=== PATIENT | male | born 1995 | race Caucasian/White ===

== ENCOUNTER → 2020-05-23 | Outpatient (CLI) | payer OTHER ==
--- NOTE | 2020-05-26 01:52 | ECWPNPC ---
PATIENT NAME: SALLY SCOTT : 1995 GENDER: MALE VISIT DATE: 05/23/2020 DISCHARGE DATE: 05/23/20925 VISIT LOCKED DATE TIME: PHYSICIAN: NEGRO REAL RESOURCE: NEGRO REAL REASON FOR APPOINTMENT 1. BACK PAIN HISTORY OF PRESENT ILLNESS DEPRESSION SCREENING: PHQ-2 (2015 EDITION) LITTLE INTEREST OR PLEASURE IN DOING THINGS?NOT AT ALL FEELING DOWN, DEPRESSED, OR HOPELESS?NOT AT ALL TOTAL SCORE0 GENERAL: 24-YEAR-OLD GENTLEMAN BEING REFERRED BY JUAN LUIS [facility]YS NP, [place], [place] FOR CHRONIC LOW BACK PAIN. REPORTS LONG HISTORY OF CHRONIC PAIN AND GENERALIZED JOINT PAIN. 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 STATES HE WAS SEEN BY [facility] ONE YEAR AGO FOR RIGHT KNEE PAIN AND WAS TREATED WITH IBUPROFEN AND REFERRED TO RHEUMATOLOGY. HAS STARTED ON SULFASALAZINE 8 MONTHS AGO WITH RHEUMATOLOGY AND RECENTLY HAD THIS INCREASED TO 3 TABLETS TWICE A DAY 2 WEEKS AGO. STATES PAIN IS BETTER IN THE MORNING AFTER STARTING THIS MEDICATION. WORST AREA OF PAIN IS LOW BACK ,RIGHT GREATER THAN LEFT. REPORTING INTERMITTENT BILATERAL LEG PAIN RIGHT GREATER THAN LEFT. LEG PAIN IS WORSE WITH EXERTION. HISTORY OF SEVERE CRAMPING AFTER TAKING PREDNISONE BY MOUTH FOR A PAIN FLAREUP SEVERAL MONTHS AGO. REVIEWED MRI OF LS SPINE AND DISCUSSED TREATMENT PLAN. - - - - - -. FALL RISK SCREENING: SCREENING :NO FALLS REPORTED IN THE LAST YEAR PAIN SCREENING: PATIENT HAS A COMPLAINT OF ACUTE OR CHRONIC PAIN :YES LOCATION OF PAIN:LOW BACK, LEG(S) INTENSITY OF PAIN (SCALE OF 1 TO 10):7 WHAT DOES YOUR PAIN FEEL LIKE:ACHING, CONTINOUS DURATION:CONTINOUS PAIN IS INCREASED BY:ACTIVITIES SITTING TOO LONG, STANDING TOO LONG, HURTS WORSE AFTER WORK PAIN IS DECREASED BY:USE OF PAIN MEDICATIONS, OTHERS REST AND MEDICATIONS ONLY TAKE THE EDGE OFF NURSING NOTE: - - - - - -. PAIN CENTER INTAKE QUESTIONS: DO YOU HAVE A HISTORY OF MRSA? :NO DO YOU TAKE A BLOOD THINNERS? :NO DO YOU HAVE ANY BLEEDING DISORDERS? :NO ANY NEW NUMBNESS OR WEAKNESS IN YOUR LEGS OR ARMS? :YES FEELS MORE PAIN ON THE RIGHT THEN LEFT ANY PACEMAKER,DEFIBRILLATOR, OR DORSAL COLUMN STIMULATOR? :NO DO YOU HAVE ANY RASHES OR OPEN SORES? 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 :NO ARE YOU DIABETIC? :NO ANY NEW PROBLEMS WITH YOUR MEDICATIONS? :NO HAVE YOU RECEIVED A VACCINE IN THE PAST 30 DAYS? :NO DO YOU PLAN TO RECEIVE A VACCINE IN THE NEXT 21 DAYS? :NO DO YOU NEED ANY PRESCRIPTION? :NO DO YOU TAKE ANY IMMUNOSUPPRESSIVE MEDICATIONS? :NO CURRENT MEDICATIONS TAKING TIZANIDINE HCL 4 MG TABLET 1 TABLET NEEDED ORALLY THREE TIMES A DAY MDD 4 TAKING OMEPRAZOLE 20 MG CAPSULE DELAYED RELEASE 1 CAPSULE 30 MINUTES BEFORE MORNING MEAL ORALLY ONCE A DAY TAKING SULFASALAZINE 500 MG TABLET 3TABS ORALLY BID MEDICATION LIST REVIEWED AND RECONCILED WITH THE PATIENT PAST MEDICAL HISTORY ARTHIRITIS (PT SEES A MANAGER GRAPHIC) CHRONIC LOW BACK PAIN FAMILY HISTORY OF HEMOCHROMOTOSIS ESSENTIAL HYPERTENSION GERD ALLERGIES PREDNISONE: SEVERE MUSCLE CRAMPING SURGICAL HISTORY RIGHT KNEE SURGERY 2014 LEFT EYE SURGERY 2016 FAMILY HISTORY FATHER: ALIVE, DIAGNOSED WITH DIABETES SIBLINGS: ALIVE 1 BROTHER(S) , 1 SISTER(S) - HEALTHY. FAMILY HISTORY OF HEMOCHROMOTOSISDIABETES- BOTH GRANDMOTHERS & GRANDFATHERS, FATHER BODERLINETHYROID- MATERNALHEART DISEASE- MATERNAL AND PATERNAL. SOCIAL HISTORY GENERAL: TOBACCO USE ARE YOU A:CURRENT SMOKER ARE YOU INTERESTED IN QUITTING?NOT READY TO QUIT COUNSELED THE PATIENT ON SMOKING EFFECTS, EDUCATION ANIFGPKO06/01/2021 HOW MANY CIGARETTES A DAY DO YOU SMOKE?11-20 HOW SOON AFTER YOU WAKE UP DO YOU SMOKE YOUR FIRST CIGARETTE?31-60 MIN HOW OFTEN DO YOU SMOKE CIGARETTES?EVERY DAY PATIENT COUNSELED ON THE DANGERS OF TOBACCO USE AND URGED TO QUIT:05/22/2020 HAVE YOU HAD A PNEUMOVAX VACCINE?NO SMOKING CESSATION INFORMATION GIVEN05/22/2020 VAPORNO E-CIGARETTENO LATEX QUESTIONNAIRE LATEX ALLERGY : HAVE YOU EVER DEVELOPED ANY TYPE OF REACTION AFTER HANDLING LATEX PRODUCTS SUCH RUBBER GLOVES, CONDOMS, DIAPHRAGMS, BALLOONS, SOCKS, OR UNDERWEAR?NO ALCOHOL USE: NO. ALCOHOL SCREENING DID YOU HAVE A DRINK CONTAINING ALCOHOL IN THE PAST YEAR?NO POINTS0 INTERPRETATIONNEGATIVE RECREATIONAL DRUG USE DRUG USE?NO PATIENT DENIES ABUSE OR MISSUSED OF ANY MEDICATION DENIES PATIENT DENIES USE OF ANY ILLEGAL SUBSTANCE INCLUDING MARIJUANA OR COCAINE DENIES CAFFEINE CAFFEINE USE?YES MANDAEN MANDAEN NO EPISCOPAL BELIEFS THAT WOULD IMPACT HEALTH CARE. LANGUAGE LANGUAGES SPOKEN:CROATIAN LEARNING BARRIERS / SPECIAL NEEDS CHANGE FROM LAST VISIT?NO BARRIERS TO LEARNING?NO HEARING IMPAIRED?NO VISION IMPAIRED?YES :CORRECTIVE LENSES DOMESTIC VIOLENCE DO YOU FEEL SAFE IN YOUR ENVIRONMENT?NO DIET: REGULAR. HOSPITALIZATION/MAJOR DIAGNOSTIC PROCEDURE DENIES PAST HOSPITALIZATION REVIEW OF SYSTEMS CONSTITUTIONAL: ANY RECENT FEVER NO . CHILLS NO . WEIGHT CHANGE OF UNKNOWN REASONS NO . GASTROENTEROLOGY: NEW UNEXPLAINABLE CHANGES IN BOWEL CONTROL NO . CONSTIPATION NO . GENITOURINARY: ANY NEW CHANGE IN BLADDER CONTROL? NO . NEUROLOGY: NEW ONSET DIZZINESS OR NEUROLOGICAL CHANGES NOT MENTIONED NO . NEW NUMBNESS OR PAIN PATTERNS NOT MENTIONED AND PERTINENT TO TODAY'S VISIT NO . CARDIOLOGY: NEW CHEST PRESSURE NO . PATIENT DENIES NO . RESPIRATORY: UNEXPLAINABLE COUGH NO . NEW SHORTNESS OF BREATH NO . VITAL SIGNS WT 286 LBS, HT 6'2, BMI 38.78 INDEX, BP 137/91 MM HG, HR 94 /MIN, RR 18 /MIN, TEMP 98.3 F, OXYGEN SAT % 97%, SAFE IN ENV? (Y/N) YEST.SIMÓN LEARY. EXAMINATION GENERAL EXAMINATION: GENERALNO ACUTE DISTRESS, WELL NOURISHED AND HYDRATED. PSYCHAPPROPRIATE MOOD AND AFFECT . NECK:NO LYMPHADENOPATHY, SUPPLE. LUNGS:CLEAR TO AUSCULTATION BILATERALLY, NO WHEEZES, RHONCHI, RALES. HEART:NO MURMURS, REGULAR RATE AND RHYTHM. MUSCULOSKELETAL:NORMAL RANGE OF MOTION. MULTIPLE AREAS OF TENDER SPOTS UPPER AND LOWER TORSO BILATERALLY INDICATIVE OF FIBROMYALGIA. LUMBAR:MARKED TENDERNESS NOTED OVER SACROILIAC JOINTS BILATERALLY . ASSESSMENTS FIBROMYALGIA - M79.7 (PRIMARY) LUMBAR FACET ARTHROPATHY - M47.816 TREATMENT FIBROMYALGIA NOTES: DISCUSSED TREATMENT OPTIONS BOTH MEDICATION AND INTERVENTIONAL. HE HAS AN ADVERSE REACTION TO PREDNISONE WHICH IS SEVERE CRAMPING. HE WOULD NOT BE A CANDIDATE FOR STEROID INJECTIONS. DID DISCUSS POSSIBILITY OF DOING RADIOFREQUENCY OVER LUMBAR FACETS IN THE FUTURE SHOULD HIS PAIN BECOME DISABLING. STRONGLY ENCOURAGED TO FOLLOW WITH RHEUMATOLOGY IN REGARDS TO MEDICATIONS. HE MAY BENEFIT FROM A TRIAL OF GABAPENTIN WITH GRADUAL MONTHLY INCREASES FROM 100 MG 3 TIMES A DAY TO 300 MG 3 TIMES A DAY FOR FIBROMYALGIA. IF THIS RESULTS IN TREATMENT FAILURE OR ADVERSE EFFECTS HE MAY BENEFIT FROM TRIAL OF LYRICA. HE HAS OPTED TO HAVE PRIMARY CARE TRIAL THESE MEDICATIONS WITH HIM CLOSER TO HOME. OTHERS NOTES: PRE [facility] VISIT PHONE CALL PERFORMED WITH PATIENT 05/22/2020 Suzanne DEXTER RN. PROCEDURE CODES FA211 ESTABILISHED PATIENT [facility] FACILITY CHARGE DISPOSITION & COMMUNICATION FOLLOW UP NO F/U NECESSARY/PATIENT WILL CALL (REASON: LUMBAR FACET ARTHROPATHY/FIBROMYALGIA) ELECTRONICALLY SIGNED BY JIL WARNER ON 05/25/2020 AT 10:32 AM EST DISCLAIMER : THIS IS A VISIT SUMMARY EXTRACTED FROM THE [facility] CHART. IT IS NOT A COPY OF THE [facility] PROGRESS NOTE. GIOVANY
== END ==
LOC: M PAIN 08:30
PROVIDERS: ATTEND Nurse Practitioner Family
DX: M79.7 Fibromyalgia (principal); K21.9 Gastro-esophageal reflux disease without esophagitis; F17.210 Nicotine dependence, cigarettes, uncomplicated; Z88.8 Allergy status to other drugs, medicaments and biological substances; Z79.899 Other long term (current) drug therapy